=== PATIENT | male | born 2000 | race Caucasian/White ===

== ENCOUNTER 2022-07-15 03:35 | Emergency (ER) | payer MEDICAID ==
[~2022-07-15] VITALS: Ht 180.3 cm; Wt 82.0 kg
[2022-07-15 03:40] VITALS: BP 139/75
[2022-07-15] MEDS ORDERED: NALO4SPR BOTHNSTRLS (04:27)
== END 2022-07-15 04:42 | disposition home or self-care (01) ==
LOC: ER 03:35
DX: T40.411A Poisoning by fentanyl or fentanyl analogs, accidental (unintentional), initial encounter (principal); Y92.89 Other specified places as the place of occurrence of the external cause
CPT/HCPCS: 99283